=== PATIENT | male | born 1940 | race African-American/Black ===

== ENCOUNTER 2022-06-12 11:37 | Inpatient (IN) | payer MEDICARE, OTHER ==
[~2022-06-12] VITALS: Ht 172.7 cm; Wt 63.4 kg
[2022-06-12 12:12] LABS: Basophils # (auto) 0 10 ^3/uL (0-0.2); Basophils % (auto) 0.4 % (0.0-2.0); Eosinophils # (auto) 0 10 ^3/uL (0-0.8); Eosinophils % (auto) 0.2 % (0.0-7.0); Hematocrit 36.1 % (41.0-53.0); Hemoglobin 11.9 g/dL (13.5-17.5); Lymphocytes # (auto) 0.6 10 ^3/uL (0.4-5.4); Lymphocytes % (auto) 9.8 % (10.0-50.0); Mean Corpuscular Hemoglobin 30.6 pg (28.0-32.0); Mean Corpuscular Volume 92.9 fL (80.0-100.0); Monocytes # (auto) 0.5 10 ^3/uL (0-1.3); Monocytes % (auto) 7.2 % (0.0-12.0); Neutrophils # (auto) 5.2 10 ^3/uL (1.6-8.6); Neutrophils % (auto) 82.4 % (37.0-80.0); Red Blood Cells 3.88 10^6/uL (4.5-5.90); Red Cell Distribution Width 12.9 % (11.8-14.3); White Blood Cell 6.3 10^3/uL (4.4-10.8)
[2022-06-12 12:34] LABS: Albumin 2.9 g/dL (3.4-5.0); BUN/Creatinine Ratio 16.7; Calcium 8.9 mg/dL (8.5-10.1); Potassium 3.8 mmol/L (3.5-5.1)
[2022-06-12 12:36] LABS: Urine Bacteria NONE SEEN /hpf (None Seen); Urine Blood Negative /uL (Negative); Urine Mucus FEW (None Seen); Urine WBC 1 /hpf (0 - 3)
[2022-06-12 12:37] LABS: Bilirubin, Total 0.5 mg/dL (0.2-1.0); Total Protein 8.8 g/dL (6.4-8.2)
[2022-06-12] MEDS ORDERED: POLYETHYLENE GLYCOL 17 GM PWDR PO ONE (16:00)
[2022-06-12] MEDS ORDERED: DOCUSATE SOD 100 MG CAP PO PRN (16:00)
[2022-06-12] MEDS ORDERED: SODIUM CHLORIDE 0.9% 1,000 ML IV SCH (16:00)
[2022-06-12] MEDS ORDERED: PANTOPRAZOLE 40 MG/10 ML VIAL INJ IV ONE (16:00)
[2022-06-12] MEDS ORDERED: LACTULOSE 20Gm/30ML SOLN PO PRN (17:00)
[2022-06-12] MEDS ORDERED: MEROPENEM 500MG IVPB 50 ML IV SCH (18:00)
[2022-06-12 18:07] VITALS: BP 127/65
[2022-06-12] MEDS ORDERED: SACU1TAB4 PO (19:08)
[2022-06-12] MEDS ORDERED: TEMA15CA2 PO (19:08)
[2022-06-12] MEDS ORDERED: PANT40T (19:08)
[2022-06-12] MEDS ORDERED: TAMS0.4C36 PO (19:08)
[2022-06-12] MEDS ORDERED: ALLO300T2 PO (19:08)
[2022-06-12] MEDS: PANTOPRAZOLE 40 MG TAB PO SCH (19:37)
[2022-06-12 20:00] VITALS: BP 115/76
[2022-06-12] MEDS: MEROPENEM 1GM IVPB 100 ML IV SCH (21:32)
[2022-06-12] MEDS: HYDROmorphone HCL 2 MG/ML VL/or syr IV PRN (21:35)
[2022-06-12 23:37] VITALS: BP 115/76
[2022-06-13 04:58] VITALS: BP 154/90
[2022-06-13] MEDS: HYDROmorphone HCL 2 MG/ML VL/or syr IV PRN ×2 (04:59→14:52)
[2022-06-13 08:00] VITALS: BP 151/92
[2022-06-13] MEDS ORDERED: PANTOPRAZOLE 40 MG TAB PO SCH (10:00)
[2022-06-13] MEDS ORDERED: ENOXAPARIN SOD 40 MG/0.4 ML SYRINGE SC SCH (10:00)
[2022-06-13] MEDS ORDERED: POLYETHYLENE GLYCOL 17 GM PWDR PO SCH (10:00)
[2022-06-13] MEDS ORDERED: PANTOPRAZOLE 40 MG/10 ML VIAL INJ IV SCH (10:00)
[2022-06-13] MEDS: TAMSULOSIN HYDROCHLORIDE 0.4 MG CAP PO SCH ×2 (10:10→22:26)
[2022-06-13] MEDS: MEROPENEM 1GM IVPB 100 ML IV SCH ×2 (10:10→21:11)
[2022-06-13] MEDS: PANTOPRAZOLE 40 MG TAB PO SCH ×2 (10:10→22:27)
[2022-06-13] MEDS: ALLOPURINOL 300 MG TAB PO SCH (10:11)
[2022-06-13 12:00] VITALS: BP 150/95
[2022-06-13] MEDS ORDERED: ARTIFICIAL TEARS 15ml EACHEYE PRN (15:30)
[2022-06-13 16:00] VITALS: BP 136/84
[2022-06-13 22:00] VITALS: BP 126/86
[2022-06-13] MEDS: TEMAZEPAM 15 MG CAP PO PRN (22:27)
[2022-06-14 05:00] VITALS: BP 158/98
[2022-06-14] MEDS: KETOROLAC TROMETH 30 MG/ML 1ML VIAL IV PRN (08:26)
[2022-06-14 08:30] VITALS: BP 164/99
[2022-06-14] MEDS: ALLOPURINOL 300 MG TAB PO SCH (08:31)
[2022-06-14] MEDS: TAMSULOSIN HYDROCHLORIDE 0.4 MG CAP PO SCH ×2 (08:31→21:57)
[2022-06-14] MEDS: PANTOPRAZOLE 40 MG TAB PO SCH ×2 (08:31→21:57)
[2022-06-14 09:33] VITALS: BP 164/99
[2022-06-14] MEDS: MEROPENEM 1GM IVPB 100 ML IV SCH ×2 (10:46→21:57)
[2022-06-14 12:46] VITALS: BP 142/94
[2022-06-14 16:13] VITALS: BP 140/88
[2022-06-14] MEDS: TEMAZEPAM 15 MG CAP PO PRN (21:57)
[2022-06-14 22:00] VITALS: BP 138/91
[2022-06-15 05:00] VITALS: BP 147/90
[2022-06-15 08:00] VITALS: BP 159/96
[2022-06-15 08:42] VITALS: BP 159/96
[2022-06-15] MEDS: TAMSULOSIN HYDROCHLORIDE 0.4 MG CAP PO SCH ×2 (11:26→21:36)
[2022-06-15] MEDS: MEROPENEM 1GM IVPB 100 ML IV SCH ×2 (11:26→21:36)
[2022-06-15] MEDS: PANTOPRAZOLE 40 MG TAB PO SCH ×2 (11:26→21:37)
[2022-06-15] MEDS: ALLOPURINOL 300 MG TAB PO SCH (11:27)
[2022-06-15 12:38] VITALS: BP 156/88
[2022-06-15] MEDS ORDERED: GADOTERATE MEG 7.5 MMOL/15ml INJ (0.5MMOL/ml) IV ONE (13:40)
[2022-06-15 17:19] VITALS: BP 122/91
[2022-06-15] MEDS: KETOROLAC TROMETH 30 MG/ML 1ML VIAL IV PRN (18:36)
[2022-06-15] MEDS: TEMAZEPAM 15 MG CAP PO PRN (21:37)
[2022-06-15 22:00] VITALS: BP 132/80
[2022-06-16 05:00] VITALS: BP 144/99
[2022-06-16 09:02] VITALS: BP 138/90
[2022-06-16] MEDS: MEROPENEM 1GM IVPB 100 ML IV SCH ×2 (09:41→22:00)
[2022-06-16] MEDS: ALLOPURINOL 300 MG TAB PO SCH (09:42)
[2022-06-16] MEDS: TAMSULOSIN HYDROCHLORIDE 0.4 MG CAP PO SCH ×2 (09:42→22:56)
[2022-06-16] MEDS: PANTOPRAZOLE 40 MG TAB PO SCH ×2 (09:42→22:55)
[2022-06-16 13:00] VITALS: BP 118/88
[2022-06-16 16:43] VITALS: BP 133/88
[2022-06-16 22:00] VITALS: BP 132/87
[2022-06-16] MEDS: KETOROLAC TROMETH 30 MG/ML 1ML VIAL IV PRN (22:00)
[2022-06-17 05:00] VITALS: BP 140/91
[2022-06-17 09:00] VITALS: BP 130/86
[2022-06-17] MEDS: PANTOPRAZOLE 40 MG TAB PO SCH (10:23)
[2022-06-17] MEDS: MEROPENEM 1GM IVPB 100 ML IV SCH (10:23)
[2022-06-17] MEDS: ALLOPURINOL 300 MG TAB PO SCH (10:23)
[2022-06-17] MEDS: TAMSULOSIN HYDROCHLORIDE 0.4 MG CAP PO SCH (10:23)
[2022-06-17] MEDS: KETOROLAC TROMETH 30 MG/ML 1ML VIAL IV PRN (10:40)
[2022-06-17 13:00] VITALS: BP 129/82
[2022-06-17 14:20] VITALS: BP 129/82
== END 2022-06-17 15:06 | disposition home or self-care (01) | DRG 392 ==
LOC: ER 11:37 → UNDOADMIN 15:49 → OVERFLOW 15:49 → EAST 16:20 → OVERFLOW 16:20 → EAST 17:03
PROVIDERS: ADMIT Internal Medicine Cardiovascular Disease; ATTEND Internal Medicine Cardiovascular Disease
DX: K57.92 Diverticulitis of intestine, part unspecified, without perforation or abscess without bleeding (principal); I25.10 Atherosclerotic heart disease of native coronary artery without angina pectoris; I10 Essential (primary) hypertension; K58.9 Irritable bowel syndrome, unspecified; N43.3 Hydrocele, unspecified; Z79.899 Other long term (current) drug therapy; Z80.42 Family history of malignant neoplasm of prostate; Z91.013 Allergy to seafood; K59.03 Drug induced constipation; K59.01 Slow transit constipation
CPT/HCPCS: 36415; 72195; 74176; 74181; 80053; 81001; 85025; 93005; G0378; J1885; J2185

== ENCOUNTER → 2022-07-21 | Outpatient (CLI) | payer MEDICARE, OTHER ==
[~2022-07-21] MED LIST: ALLO300T2 PO; PANT40T; SACU1TAB4 PO; TAMS0.4C36 PO; TEMA15CA2 PO
== END | disposition home or self-care (01) ==
LOC: LAB 11:34
PROVIDERS: ATTEND Urology
DX: N40.0 Benign prostatic hyperplasia without lower urinary tract symptoms (principal)
CPT/HCPCS: 84153

== ENCOUNTER → 2022-09-02 | Outpatient (CLI) | payer MEDICARE, OTHER ==
[~2022-09-02] MED LIST changes: +READI-CAT 2 (BARIUM SULF)(VANILLA SMOOTHIE) 450ML ONE
== END | disposition home or self-care (01) ==
LOC: Rad HDHVI 09:34
PROVIDERS: ATTEND Internal Medicine Cardiovascular Disease
DX: K40.90 Unilateral inguinal hernia, without obstruction or gangrene, not specified as recurrent (principal); N28.1 Cyst of kidney, acquired; R59.9 Enlarged lymph nodes, unspecified
CPT/HCPCS: 74176